=== PATIENT | male | born 2005 | race Caucasian/White ===

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

== ENCOUNTER → 2025-02-07 | Outpatient (CLI) | payer OTHER, MEDICAID, SELFPAY ==
[2025-02-08 17:08] LABS: Giardia Lamblia, Stool EIA Negative (Negative)
[2025-02-12 14:09] LABS: Calprotectin, Stool 70 ug/g (0-120)
== END | disposition home or self-care (01) ==
PROVIDERS: PCP Pediatrics; Referring Provider Student in an Organized Health Care Education/Training Program; Visit Provider Student in an Organized Health Care Education/Training Program
DX: K58.9 Irritable bowel syndrome, unspecified (principal); R19.5 Other fecal abnormalities
CPT/HCPCS: 83630; 83993; 87177; 87209; 87329; 87493; 87506

== ENCOUNTER → 2025-02-21 | Outpatient (CLI) | payer OTHER, MEDICAID, SELFPAY ==
--- NOTE | 2025-02-21 07:53 | NM_ITS ---
PROCEDURE: HEPATOBILLIARY IMG W/PHARM INT 02/21/2025 REASON FOR EXAM: ABD PAIN TECHNIQUE: Intravenous Choletec with planar imaging of the abdomen. 1.3 mcg Kinevac intravenously approximately 60 minutes after the radiopharmaceutical with additional anterior imaging and a region of interest drawn around the gallbladder to calculate a time-activity curve. RADIOPHARMACEUTICAL: Mebrofenin DOSE 5.7mCi COMPARISON: None FINDINGS: There is good uptake of the radiopharmaceutical by the liver. Normal gallbladder visualization with the gallbladder identified by 30 minutes. Gallbladder Ejection Fraction: 89 % (Normal is >35%) NM/Hepatobilliary Img w/Pharm Int IMPRESSION: No bowel hepatobiliary scan with gallbladder ejection fraction. Reading Location: [id number]
== END | disposition home or self-care (01) ==
LOC: NM 07:53
PROVIDERS: PCP Pediatrics; Referring Provider Student in an Organized Health Care Education/Training Program; Visit Provider Student in an Organized Health Care Education/Training Program
DX: R10.9 Unspecified abdominal pain (principal)
CPT/HCPCS: 78227; A9537; J2805

== ENCOUNTER 2025-04-08 07:53 | Day surgery (SDC) | payer OTHER, MEDICAID, SELFPAY ==
[2025-04-08] VITALS (7 sets, daily range): BP systolic 98–117; BP diastolic 58–67; PULSE 51–65; RESP 16; TEMP 36.1–36.3; O2SAT 97–99; BMI 23.5
--- NOTE | 2025-04-08 08:07 | PCM.HP.STD ---
HPI - General General Date of Admission: 04/08/25 Date of Service: 04/08/25 Chief Complaint: Abdominal pain and diarrhea HPI Narrative HANK MIRELES, is a 19 M who presents with Chief Complaint: epigastric pain and diarrhea Urgent Care 5.2 for bilateral abd pain going down to his left buttock. [facility] 6.25 with epigastric abd pain x1 week. Work up unremarkable OV 6.25 Pt with continued abd pain in his epigastrium, LUQ and RUQ. This started about 1-2 months ago. He as started on omeprazole 20 mg daily about a week ago which has not helped. He did take meloxicam once and it did help. Pain is sometimes wore after eating and is causing him to not have an appetite. He has had some alternating constipation and diarrhea over this time. [facility] Medical History (Updated 04/08/25 @ 08:[address] Jermain Parsons, DO) Marijuana use Injury of head and neck Gastric reflux Non-smoker Neck pain Asthma ADHD Hx of rheumatic fever Home Medications ?Medication ?Instructions ?Recorded ?Last Taken ?Type NK 04/03/25 Unknown History Allergy/AdvReac Type Severity Reaction Status Date / Time amoxicillin Allergy Severe Hives Verified 04/08/25 08:08 bacitracin (From Neosporin Allergy Severe Hives Verified 04/08/25 08:08 ([id number])) neomycin (From Neosporin Allergy Severe Hives Verified 04/08/25 08:08 ([id number])) Penicillins Allergy Severe Hives Verified 04/08/25 08:08 polymyxin B (From Neosporin Allergy Severe Hives Verified 04/08/25 08:08 ([id number])) Surgical History History of myringotomy Hx of tonsillectomy Social History Smoking Status: Never smoker alcohol intake: current substance use type: does not use ROS Constitutional Constitutional: Denies fatigue, fever(s), poor appetite, weight gain or weight loss Gastrointestinal Gastrointestinal: Denies belching, bloating, change in bowel habits, change in stool character, chewing difficulty, coffee ground emesis, constipation, cramping, diarrhea, dyspepsia, dysphagia, early satiety, excessive flatus, fecal incontinence, heartburn, hematemesis, hematochezia, hemorrhoids, loose stools, melena, nausea, odynophagia, rectal bleeding, tenesmus, vomiting or weight changes Physical Exam Const alert, oriented x3, no apparent distress and healthy appearing General Appearance: cooperative GI normal to inspection, nondistended, normoactive bowel sounds, soft to palpation, non-tender and non-distended Percussion: normal to percussion Rectal Exam: deferred Assessment & Plan Assessment/Plan (1) Loose stools: (2) Gastric reflux: PLAN: Assessment and Plan Assessment and Plan (1) Loose stools: Status: Acute (2) Abdominal pain: Status: Inactive Plan: Linda is a 19 yo male pt with abd pain x1-2 months. Pain is aching in the epigastric region, RUQ, and LUQ. Work up with CBC, CMP and lipase has been unremarkable. Gallbladder US normal. He will undergo HIDA scan to further rule out biliary dyskinesia. He was scheduled for EGD to evaluate his stomach for ulceration or inflammation. I have ordered stool testing for inflammation or infection. I have increased the frequency of his PPI to BID. -HIDA -Stool testing -EGD -Consider CT abd -f/u after testing Orders: Orders Hepatobilliary Img w/Pharm Int Today R10.9 - Unspecified abdominal pain Ova and Parasites 8623 Today K58.9 - Irritable bowel syndrome, unspecified, R19.5 - Other fecal abnormalities Stool Lactoferrin/WBC Today K58.9 - Irritable bowel syndrome, unspecified, R19.5 - Other fecal abnormalities Calprotectin, Stool Today R19.5 - Other fecal abnormalities CDIFF (PCR) Today R19.5 - Other fecal abnormalities ENTERIC PATHOGEN PANEL STOOL Today K58.9 - Irritable bowel syndrome, unspecified, R19.5 - Other fecal abnormalities Giardia Lamblia, Stool EIA Today R19.5 - Other fecal abnormalities Medications: New omeprazole 40 mg PO QDAY 60 caps 1RF
[2025-04-08] MEDS: Lactated Ringers 1,000 ML 15 ML IV (08:25)
--- NOTE | 2025-04-08 08:47 | PCM.PRE.AN2 ---
ASA Classification* ASA Classification ASA Classification: 2 Assessment & Plan Anesthesia* Anesthesia Assessment Anesthesia Assessment: Discussed sedation and/or anesthesia options, risks, benefits, and alternatives with patient/parents/legal guardian/POA. Questions invited. The patient/parents/legal guardian/POA seems to understand and agrees to proceed with anesthesia plan. Reviewed the physical assessment, medical history, allergy history and patient home medications list prior to surgery/procedure/anesthetic and documented any changes. Performed airway and anesthesia risk assessments. Anesthesia Type Anesthesia Type: MAC History Source History Obtained from:: Patient and Chart Anesthesia Focused Assessment* Temperature: 97.3 F Pulse Rate: 65 Blood Pressure: 117/64 Respiratory Rate: 16 Pulse Ox: 97 Oxygen Delivery Method: Room Air Airway Assessment Mouth opens: >3 cm Mallampati Score: II Teeth Condition: Intact Neck Range of motion (ROM): Full ROM Labs Anesthesia Preop lab: CBC WBC 5.6 K/mm3 (4.5-13.0) 03/14/24 11:25 03/14/24 RBC 5.10 M/mm3 (4.5-5.1) 03/14/24 11:25 03/14/24 Hgb 15.3 g/dL (13.0-16.5) 03/14/24 11:25 03/14/24 Hct 45.7 % (36-47) 03/14/24 11:25 03/14/24 Plt Count 312 K/mm3 (150-450) 03/14/24 11:25 03/14/24 CHEMISTRY Potassium 3.7 mmol/L (3.5-5.1) 03/14/24 11:25 03/14/24 Sodium 138 mmol/L (136-145) 03/14/24 11:25 03/14/24 BUN 9 mg/dL (7-18) 03/14/24 11:25 03/14/24 Creatinine 1.02 mg/dL (0.70-1.30) 03/14/24 11:25 03/14/24 Glucose 102 mg/dL (74-106) 03/14/24 11:25 03/14/24 COAG Pre-Assessment Diagnosis/Proposed Procedure Planned Operative Procedure(s): EGD Anesthesia History Anesthesia History - brand manager: Anesthesia History - brand manager Hx Hospitalization No 04/03/25 10:27 Any Problems With Anesthesia No 04/03/25 10:27 Cholinesterase deficiency No 04/03/25 10:27 You/Your Family Experience No 04/03/25 10:27 fever (hyperthermia) with Relationship Recent Exposure to Contagious No 04/08/25 08:10 Disease Does patient have nerve No 04/03/25 10:27 stimulator Patient instructed to have device shut off --Does patient have Pacemaker No 04/08/25 08:10 or ICD? When Was Last Pacemaker Check QUESTION #4 FULL TEXT: You/Your Family Experience fever (hyperthermia) with Anesthesia Last Oral Intake Last Oral intake: Last Oral Intake NPO since 23:00 04/08/25 08:10 Meds taken in AM with sips of water? Meds patient instructed to take am of surgery PONV PONV - brand manager: PONV - brand manager Female No 04/03/25 10:27 HX of Motion Sickness No 04/03/25 10:27 HX of N/V After Surgery No 04/03/25 10:27 Non-Smoker Yes 04/03/25 10:27 Duration of Surgery greater No 04/03/25 10:27 than 60 minutes Number of Risk Factors 1 04/03/25 10:27 PONV Score Low Risk 04/03/25 10:27 Height & Weight Height & Weight: Anesthesia: Height & Weight Height 5 ft 6 in 04/08/25 08:10 Weight: 66 kg 04/08/25 08:10 Body Mass Index (BMI) 23.5 04/08/25 08:10 Respiratory Assessment Respiratory Assessment - brand manager: Respiratory Tract Infection Hx - brand manager Hx Respiratory Tract Infection No 04/03/25 10:27 STOP Sleep Apnea STOP Sleep Apnea - brand manager: STOP Sleep Apnea - brand manager Hx Hypertension No 04/03/25 10:27 Hx Sleep Apnea No 04/03/25 10:27 CPAP No 04/03/25 10:27 BIPAP Do you snore loudly (louder No 04/03/25 10:27 than talking or can be heard Do you often feel tired/ No 04/03/25 10:27 fatigued/ sleepy during daytime? Has anyone observed you stop No 04/03/25 10:27 breathing during sleep? STOP Results Negative 04/03/25 10:27 QUESTION #5 FULL TEXT : Do you snore loudly (louder than talking or can be heard through closed doors)? 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 Specify any problems Hx of Preganancy in last 3 N/A 04/03/25 10:27 Months Nurse Filling Out Transfusion VCHRISTIN 04/03/25 10:27 & Questions: Date: 04/03/25 04/03/25 10:27 Time: 10:28 04/03/25 10:27 Patient unable to answer at this time (ie. confused, unrespo /Reproduction History /Reproductive History - brand manager: /Reproductive Hx- brand manager Hx Now No 04/03/25 10:27 Gestational Age (in weeks): EDC: Hx Hx Para Hx Section SAB No 04/03/25 10:27 Active Medications Active Medications: Current Medications Generic Name Dose Route Start Last Admin Trade Name Freq PRN Reason Stop Dose Admin Lactated Ringer's 1,000 mls @ 15 mls/hr 04/08/25 08:30 04/08/25 08:25 IV 15 mls/hr .Q48H LM Administration PFSH Medical History Marijuana use Injury of head and neck Gastric reflux Non-smoker Neck pain Asthma ADHD Hx of rheumatic fever Home Medications ?Medication ?Instructions ?Recorded ?Last Taken ?Type NK 04/03/25 Unknown History Allergy/AdvReac Type Severity Reaction Status Date / Time amoxicillin Allergy Severe Hives Verified 04/08/25 08:08 bacitracin (From Neosporin Allergy Severe Hives Verified 04/08/25 08:08 ([id number])) neomycin (From Neosporin Allergy Severe Hives Verified 04/08/25 08:08 ([id number])) Penicillins Allergy Severe Hives Verified 04/08/25 08:08 polymyxin B (From Neosporin Allergy Severe Hives Verified 04/08/25 08:08 ([id number])) Surgical History History of myringotomy Hx of tonsillectomy Social History Smoking Status: Never smoker alcohol intake: current substance use type: does not use Review of Systems (Anesthesia) ROS Narrative System reviewed and no additional complaints, except as documented.
--- NOTE | 2025-04-08 09:00 | EGD_PTH ---
PATIENT: HANK MIRELES LOC: EN U#:[id number] AGE/SX: 19/M ROOM: RE04/08/[address]: Dr. Jermain Parsons DO : 2005 BED: DIS: 04/08/2025 SPEC #: [id number] RECD: 04/08/25 11:56 STATUS: LISA REHerrera #: [id number] VINOD: 04/08/25 09:[address]: Jermain Parsons DEPT: SURGICAL PATHOLOGY RECD BY: Uriel Wiley ENTERED: 04/08/25 13:42 SP TYPE: EGD BIOPSY IVELISSE DR: Dr. Oswaldo Garcia MD Tissues: A - Duodenum, NOS B - Gastric mucous membrane Procedures: Immunohistochemical Stains Surgery Specimen Level IV HEADER OPERATION: EGD with biopsy PRE-OP DIAGNOSIS: Loose stools, gastric reflux TISSUE SUBMITTED: A- Duodenum biopsy, B- Gastric body biopsy MICROSCOPIC DIAGNOSIS A. Duodenum, biopsy: - Normal villous morphology with no specific pathologic change. - Negative for increased intraepithelial lymphocytes. B. Gastric body, biopsy: - Oxyntic mucosa with chronic inflammation. - IHC negative for H.pylori organisms. MICROSCOPIC DESCRIPTION Slides are reviewed. All matched controls reacted appropriately. These tests were developed and their performance characteristics determined by [facility]. They may not have been cleared or approved by the U.S. Food and Drug Administration. The FDA has determined that such clearance or approval is not necessary. The above immunohistochemical markers are reviewed by the Pathologist. GROSS DESCRIPTION A. Received in fixative is one container labeled with the patient's name and designated Duodenum biopsy. The specimen consists of two irregular fragments of light saleh soft tissue, each measuring 0.4 cm. The specimen is totally submitted in one cassette. B. Received in fixative is one container labeled with the patient's name and designated Gastric body biopsy. The specimen consists of two irregular fragments of light saleh soft tissue that measure 0.8 and 1 cm. The specimen is totally submitted in one cassette. DC 04/08/2025 CPT:06532x0,06116
--- NOTE | 2025-04-08 09:53 | OP.PROVAT_ITS ---
04/08/2025 Oswaldo Garcia Md Re : Upper GI endoscopy procedure for Nael Doyle Dear Jose This procedure was performed on Tuesday, April 08, 2025. My impressions and recommendations are as follows: Impressions : - Normal esophagus. - Erythematous mucosa in the gastric body. Biopsied. - Erythematous duodenopathy. Biopsied. Recommendations : - Discharge patient to home. - Resume previous diet. - Continue present medications. - Await pathology results. My findings are described in the full procedure note, which is enclosed. If I can be of further assistance, please feel free to contact me at . Sincerely, Jermain Parsons, 04/08/2025 9:52:57 AM This report has been signed electronically.
--- NOTE | 2025-04-08 09:53 | OP.EGD_ITS ---
Patient Name: Nael Doyle Procedure Date: 04/08/2025 9:34 AM Date of : 2005 Age: 19 Procedure: Upper GI endoscopy Indications: Epigastric abdominal pain, Functional Dyspepsia, Dyspepsia, Indigestion Providers: Jermain Parsons DO Medicines: Monitored Anesthesia Care Patient Profile: This is a 19 year old male. Patient has symptoms of chronic abdominal cramping, chronic abdominal distention, chronic epigastric abdominal pain and chronic nausea. Complications: No immediate complications. Procedure: Pre-Anesthesia Assessment: - Prior to the procedure, a History and Physical was performed, and patient medications and allergies were reviewed. The patient is competent. The risks and benefits of the procedure and the sedation options and risks were discussed with the patient. All questions were answered and informed consent was obtained. Patient identification and proposed procedure were verified by the physician. Mental Status Examination: alert and oriented. Airway Examination: normal oropharyngeal airway and neck mobility. Respiratory Examination: clear to auscultation. CV Examination: normal. Prophylactic Antibiotics: The patient does not require prophylactic antibiotics. Prior Anticoagulants: The patient has taken no anticoagulant or antiplatelet agents. ASA Grade Assessment: II - A patient with mild systemic disease. After reviewing the risks and benefits, the patient was deemed in satisfactory condition to undergo the procedure. The anesthesia plan was to use monitored anesthesia care (MAC). Immediately prior to administration of medications, the patient was re-assessed for adequacy to receive sedatives. The heart rate, respiratory rate, oxygen saturations, blood pressure, adequacy of pulmonary ventilation, and response to care were monitored throughout the procedure. The physical status of the patient was re-assessed after the procedure. After obtaining informed consent, the endoscope was passed under direct vision. Throughout the procedure, the patient's blood pressure, pulse, and oxygen saturations were monitored continuously. The Endoscope was introduced through the mouth, and advanced to the second part of duodenum. The upper GI endoscopy was accomplished without difficulty. The patient tolerated the procedure well. Scope In: 9:44:01 AM Scope Out: 9:47:00 AM Total Procedure Duration Time 0 hours 2 minutes 59 seconds Findings: The examined esophagus was normal. Patchy mildly erythematous mucosa without bleeding was found in the gastric body. Biopsies were taken with a cold forceps for Helicobacter pylori testing. Verification of patient identification for the specimen was done. Biopsies were taken with a cold forceps for histology. Verification of patient identification for the specimen was done. Estimated blood loss was minimal. Patchy mildly erythematous mucosa without active bleeding and with no stigmata of bleeding was found in the duodenal bulb. Biopsies were taken with a cold forceps for histology. Verification of patient identification for the specimen was done. Estimated blood loss was minimal. Impression: - Normal esophagus. - Erythematous mucosa in the gastric body. Biopsied. - Erythematous duodenopathy. Biopsied. Recommendation: - Discharge patient to home. - Resume previous diet. - Continue present medications. - Await pathology results. Procedure Code(s): --- Professional --- 03835, Esophagogastroduodenoscopy, flexible, transoral; with biopsy, single or multiple CPT copyright 2021 [employer]. All rights reserved. The codes documented in this report are preliminary and upon senior policy advisor review may be revised to meet current compliance requirements. Jermain Parsons DO 04/08/2025 9:52:57 AM This report has been signed electronically. Number of Addenda: 0 Note Initiated On: 04/08/2025 9:34 AM
--- NOTE | 2025-04-08 09:54 | PCM.POST.ANE ---
Anesthesia: Postop Eval I Current Vital Signs Temperature: 97.3 F Pulse Rate: 60 Blood Pressure: 105/58 Respiratory Rate: 16 Pulse Ox: 98 Oxygen Delivery Method: Room Air Assessment Airway patent: Yes Spontaneous unlabored respirations: Yes Mental status: Asleep nausea: No Vomiting: No Anesthesia Complication: No Fluid Hydration Crystalloid volume administer (ml): 400 Total IV fluid infused: 400 Progress Note Anesthesia document: Postop Eval 1 completed: Yes
--- NOTE | 2025-04-08 11:13 | PCM.POSTANE2 ---
Anesthesia Postop Eval I Sum Postop Eval Completion status Anesthesia document: Postop Eval 1 completed: Yes Anesthesia Postop Eval I Summary Anesthesia Postop Eval I Summary: Anesthesia Postop Eval I: Assessment Summary Airway patent Yes 04/08/25 09:55 [email or web address] Spontaneous unlabored Yes 04/08/25 09:55 [email or web address] respirations Mental status Asleep 04/08/25 09:55 [email or web address] nausea No 04/08/25 09:55 [email or web address] Vomiting No 04/08/25 09:55 [email or web address] Anesthesia Postop Eval I: Fluid Summary Crystalloid volume administer 400 04/08/25 09:55 [email or web address] (ml) Colloids volume administered ( ml) Blood Product volume administered (ml) Total IV fluid infused 400 04/08/25 09:55 [email or web address] Anesthesia Postop Eval I: Summary Notes Anesthesia Complication No 04/08/25 09:55 [email or web address] Anesthesia Complication Comment: Post-operative progress note Anesthesia: Postop Eval II Evaluation Mental status: Awake Pain Level: 0 nausea: No Vomiting: No
== END 2025-04-08 10:26 | disposition home or self-care (01) ==
LOC: EN 07:56 → AC 07:57
PROVIDERS: PCP Pediatrics; Referring Provider Pediatrics; Visit Provider Internal Medicine Gastroenterology
PROC: 0DJ08ZZ Inspection of Upper Intestinal Tract, Via Natural or Artificial Opening Endoscopic (ICD-10-PCS; CPT 43235; principal; 2025-04-08 08:55)
DX: K58.0 Irritable bowel syndrome with diarrhea (principal); K29.50 Unspecified chronic gastritis without bleeding; K21.9 Gastro-esophageal reflux disease without esophagitis; R10.13 Epigastric pain; R19.5 Other fecal abnormalities
CPT/HCPCS: 43239; 88305; 88342; J2405